=== PATIENT | female | born 1945 | race Caucasian/White ===

== ENCOUNTER → 2018-12-29 10:30 | Outpatient (CLI) | payer MEDICARE, OTHER, SELFPAY ==
--- NOTE | 2018-12-29 | DI.MRI.S_ITS ---
PROCEDURE: MR HIP LT WO CON INDICATIONS: Unilateral primary osteoarthritis, left hip TECHNIQUE: Noncontrast coronal T1 spin echo and STIR through the bony pelvis. Coronal and axial T2 fast spin echo with fat saturation, sagittal T1 spin echo, and oblique axial T2 fast spin echo with fat saturation through the hip. COMPARISON: [facility] [place], CR, XR PELVIS WITH BILATERAL LATERAL HIPS, 11/20/2018, 9:44. FINDINGS: Image quality: Excellent. Bones and joints: Bone marrow of the pelvic ring and proximal femurs show normal signal throughout. No intraosseous lesions or fractures. No avascular necrosis of the femoral heads. Lower lumbar spondylosis. Tendons and ligaments: There is marked thickening of intrasubstance signal change and adjacent soft tissue edema involving the left gluteus minimus and medius insertions. No associated muscle atrophy is identified. Also, on large [id number] pulse sequences, there are similar signal changes involving the insertions of the right hip abductors. The nearby proximal iliotibial band also appears intact. The iliopsoas tendon appears intact, without adjacent bursal fluid collections or evidence for impingement syndrome. The origin of the hamstring tendon is intact at the ischial tuberosity, as well as the associated sacrotuberous ligament. The straight and reflected heads of the rectus femoris muscle origin appear intact, as well as the conjoint tendon. The ligamentum teres appears intact where visualized. Labrum and cartilage: Frayed appearance of the anterosuperior labrum although this could be better evaluated with dedicated MR arthrography. There is mild to moderate degeneration The alpha angle of the femur is within normal limits at less than 55 degrees. Soft tissues: Visualized muscles demonstrate normal bulk and internal signal. Quadratus femoris muscle demonstrates no internal edema to suggest ischiofemoral impingement. The proximal sciatic neurovascular bundle appears normal adjacent to the hamstring tendons. No free pelvic fluid. Bladder wall thickness is normal. Genitourinary structures and bowel loops appear normal where visualized. Incidental colonic diverticulosis. IMPRESSION: Severe left hip abductor insertional tendinopathy/partial rupture, with adjacent soft tissue edema. Of note, similar appearance of the right hip abductors on large nagmc-[id number]-jqsa pulse sequences, although to a slightly lesser extent Mild to moderate left hip joint degeneration. Ill-defined degenerative fraying of the anterosuperior labrum. Dictated by: Fransisco Geller M.D. on 12/31/2018 at 14:09 Approved by: Fransisco Geller M.D. on 12/31/2018 at 14:29
== END ==
PROVIDERS: PCP Family Medicine; Visit Provider Orthopaedic Surgery
DX: M16.12 Unilateral primary osteoarthritis, left hip (principal); S76.012A Strain of muscle, fascia and tendon of left hip, initial encounter; R60.9 Edema, unspecified
CPT/HCPCS: 73721

== ENCOUNTER → 2019-10-25 16:19 | Outpatient (CLI) | payer MEDICARE, OTHER, SELFPAY ==
[2019-10-27 21:36] LABS: COVID19 Sendout Not Detected (Not Detected)
== END ==
PROVIDERS: PCP Family Medicine; Visit Provider Family Medicine
DX: R05 Cough (principal)
CPT/HCPCS: 87635

== ENCOUNTER → 2019-10-25 16:27 | Outpatient (CLI) | payer MEDICARE, OTHER, SELFPAY ==
--- NOTE | 2019-10-25 16:31 | DI.RAD.S_ITS ---
PROCEDURE: XR CHEST 2V INDICATIONS: cough, fever TECHNIQUE: 2 views of the chest were acquired. COMPARISON: None. FINDINGS: Surgical changes and devices: None. Lungs and pleura: Lungs are clear. No pleural effusions or pneumothorax. The lungs are hyperexpanded, with flattening of the hemidiaphragms seen. Mediastinum: The cardiac contours are within normal limits. The aorta demonstrates calcification and tortuosity. Bones and chest wall: No suspicious bony abnormalities. Age-appropriate bony degenerative changes are seen. Accentuated thoracic kyphosis is seen. Soft tissues appear unremarkable. IMPRESSION: No focal infiltrates are seen. Dictated by: Dale Barragan M.D. on 10/25/2019 at 15:54 Approved by: Dale Barragan M.D. on 10/25/2019 at 15:55
== END ==
PROVIDERS: PCP Family Medicine; Referring Provider Family Medicine; Visit Provider Family Medicine
DX: Z20.828 Contact with and (suspected) exposure to other viral communicable diseases (principal); R05 Cough; R50.9 Fever, unspecified
CPT/HCPCS: 71046; 87635

== ENCOUNTER 2025-03-15 19:51 | Emergency (ER) | payer MEDICARE, OTHER, SELFPAY ==
[2025-03-15 20:23] VITALS: BP 139/85; PULSE 69; RESP 15; TEMP 37.3; O2SAT 96; BMI 29.1
--- NOTE | 2025-03-15 20:30 | DI.RAD.S_ITS ---
PROCEDURE: XR WRIST LT MIN 3V INDICATIONS: fall TECHNIQUE: 4 views of the wrist were acquired. COMPARISON: [facility], CR, XR FOREARM LT 2V, 03/15/2025, 20:47. FINDINGS: Bones: No fractures or dislocations. No suspicious bony lesions. Soft tissues: No suspicious soft tissue calcifications. IMPRESSION: No acute fracture. Dictated by: Fam Nichols M.D. on 03/15/2025 at 21:54 Approved by: Fam Nichols M.D. on 03/15/2025 at 21:55
--- NOTE | 2025-03-15 20:30 | DI.RAD.S_ITS ---
PROCEDURE: XR FOREARM LT 2V INDICATIONS: fall TECHNIQUE: 2 views of the forearm were acquired. COMPARISON: [facility], CR, XR WRIST LT MIN 3V, 03/15/2025, 20:47. FINDINGS: Bones: No fractures or dislocations. No suspicious bony lesions. Soft tissues: No suspicious soft tissue calcifications or masses. IMPRESSION: No acute bony abnormality. Dictated by: Fam Nichols M.D. on 03/15/2025 at 21:52 Approved by: Fam Nichols M.D. on 03/15/2025 at 21:54
--- NOTE | 2025-03-15 23:08 | PC.NURSE ---
Pt frustrated and stating we waited in the lobby for 3 hours. What are we waiting for now? Pt informed that the provider is working as fast as he can. reports We should have just went to [place]
--- NOTE | 2025-03-15 23:22 | ED.FALL ---
HPI - Fall General Chief Complaint: Fall Stated Complaint: Lt arm pain + swelling, fell Time Seen by Provider: 03/15/25 22:38 Source: patient Mode of arrival: Ambulatory History of Present Illness HPI Narrative: 79-year-old female had fall 2 days ago with scrape to the inner aspect of her left leg that seems to be improved, able to bear weight. She also has injury to her left wrist and distal forearm, that seems to be persisting, can move her wrist. No other injuries. She also is on oral azithromycin day 3 of 5 day planned course for respiratory illness, having coughing, not using any inhaler. Related Data Home Medications ?Medication ?Instructions ?Recorded ?Confirmed ASPIRIN (Aspirin) 81 mg PO Q DAY ##0 06/12/11 10/25/19 CHOLECALCIFEROL (VITAMIN D3) 400 iu PO ##0 06/12/11 10/25/19 (Vitamin D) alprazolam 0.25 mg tablet 0.25 mg PO PRN ##0 06/12/11 10/25/19 atorvastatin 20 mg tablet (Lipitor) 10 mg PO HS ##0 06/12/11 10/25/19 citalopram 40 mg tablet (Celexa) 40 mg PO Q DAY ##0 06/12/11 10/25/19 clonazepam 0.5 mg tablet (Klonopin) 0.5 mg PO HS ##0 06/12/11 10/25/19 alprazolam 0.5 mg tablet 0.5 mg PO DAILY PRN anxiety 03/15/25 03/15/25 amoxicillin 500 mg capsule 500 mg PO 3XD 03/15/25 03/15/25 atorvastatin 10 mg tablet 10 mg PO DAILY 03/15/25 03/15/25 benzonatate 200 mg capsule 200 mg PO 3XD PRN cough 03/15/25 03/15/25 buspirone 5 mg tablet 5 mg PO BID 03/15/25 03/15/25 clonazepam 1 mg disintegrating 1 mg PO QPM 03/15/25 03/15/25 tablet diltiazem HCl 120 mg 120 mg PO DAILY 03/15/25 03/15/25 capsule,extended release 24 hr lamotrigine 100 mg tablet 100 mg PO DAILY 03/15/25 03/15/25 metoprolol succinate 50 mg 50 mg PO DAILY 03/15/25 03/15/25 tablet,extended release 24 hr prednisone 20 mg tablet 20 mg PO DAILY 03/15/25 03/15/25 prednisone 50 mg tablet 50 mg PO QAM 03/15/25 03/15/25 Allergies Allergy/AdvReac Type Severity Reaction Status Date / Time metoclopramide (From Reglan) Allergy Intermediate Verified 03/15/25 20:20 Patient History Social History Smoking Status: Never smoker Smoking Status: Never smoker Exam Narrative Exam Narrative: GENERAL: Well-developed patient, in mild distress. HEAD: Atraumatic. Normocephalic. EYES: Pupils equal round and reactive. Extraocular motions intact. No scleral icterus. No injection or drainage. ENT: Nose without bleeding, purulent drainage. Throat without erythema, tonsillar hypertrophy or exudate. Airway patent. NECK: Trachea midline. Non tender CARDIOVASCULAR: Regular rate and rhythm without murmurs, gallops, or rubs. RESPIRATORY: Clear to auscultation. Breath sounds equal bilaterally. No wheezes, rales, or rhonchi. GASTROINTESTINAL: Abdomen soft, non-tender, nondistended. EXTREMITIES: No edema or joint tenderness. BACK: Nontender without deformity or crepitance. No flank tenderness. NEURO: AOx3. Motor functions grossly nonfocal. SKIN: No rash or erythema of visible areas Initial Vital Signs Initial Vital Signs: Vital Signs Temperature 99.2 F 03/15/25 20:23 Pulse Rate 69 03/15/25 20:23 Respiratory Rate 15 03/15/25 20:23 Blood Pressure 139/85 03/15/25 20:23 Pulse Oximetry 96 03/15/25 20:23 Oxygen Delivery Method Room Air 03/15/25 20:23 Course Orders Ordered: Discontinued Medications Albuterol (Al[facility]erol Hfa Prepack) [facility] Stop: 03/15/25 23:27 Last Admin: 03/15/25 23:31 Dose: 1 box Documented By: MR Vital Signs Vital signs: Vital Signs - 8 hr 03/15/25 20:23 Temperature 99.2 F Pulse Rate 69 Respiratory Rate 15 Blood Pressure 139/85 Pulse Oximetry 96 Oxygen Delivery Method Room Air MDM - Fall MDM Narrative Medical decision making narrative: 79-year-old female with ground level fall, left wrist pain and swelling. X-ray left wrist without obvious fracture, Velcro wrist splint for support/comfort. Tylenol and or Motrin advised for pain control. Also having coughing while on oral azithromycin day 3 of 5 days course, lungs clear, no wheezes or crackles, no lower extremity edema, no respiratory distress, no fever, no oxygen requirement. We will add bronchodilator support symptomatic treatment albuterol 2 puffs 4 times daily as needed, dispensed in the emergency department, with spacer and teaching by RT. Discharged home with . Return precautions discussed. Discharge Plan Departure Patient Disposition: Home Clinical Impression: Acute upper respiratory infection, Contusion of left wrist, Contusion of left leg Activity Restrictions/Additional Instructions: Recent fall with left leg contusion and small abrasion, able to bear weight. Also subsequent left wrist forearm pain, x-rays of the left wrist forearm without fracture today. Velcro wrist splint support applied in the emergency department to use as needed. Also recent coughing, taking oral azithromycin antibiotic. Still having coughing, no bronchodilator inhaler use. We dispensed albuterol inhaler with use of spacer, 2 puffs 4 times daily as needed, that might help control your cough better. Go ahead and continue the course of your azithromycin full antibiotic course as needed. Recheck with your regular doctor if not improving in the next couple of days. Return to this/nearest emergency department for any change worsening symptoms or any concerns prior. Prescriptions: No Action ASPIRIN (Aspirin) 81 mg PO Q DAY Qty: 0 atorvastatin [Lipitor] 20 MG tablet 10 mg PO HS Qty: 0 citalopram [Celexa] 40 MG tablet 40 mg PO Q DAY Qty: 0 clonazepam [Klonopin] 0.5 MG tablet 0.5 mg PO HS Qty: 0 alprazolam 0.25 MG tablet 0.25 mg PO PRN Qty: 0 CHOLECALCIFEROL (VITAMIN D3) (Vitamin D) 400 iu PO Qty: 0 amoxicillin 500 mg capsule 500 mg PO 3XD buspirone 5 mg tablet 5 mg PO BID atorvastatin 10 mg tablet 10 mg PO DAILY benzonatate 200 mg capsule 200 mg PO 3XD PRN (Reason: cough) alprazolam 0.5 mg tablet 0.5 mg PO DAILY PRN (Reason: anxiety) diltiazem HCl 120 mg capsule,extended release 24hr 120 mg PO DAILY clonazepam 1 mg tablet,disintegrating 1 mg PO QPM lamotrigine 100 mg tablet 100 mg PO DAILY Patient Comments: [NO ORIGINAL SIG] metoprolol succinate 50 mg tablet extended release 24 hr 50 mg PO DAILY prednisone 20 mg tablet 20 mg PO DAILY prednisone 50 mg tablet 50 mg PO QAM Referrals: Kapil Morales DO [Primary Care Provider, Family Practice] Stand Alone Forms: Patient Portal/API
[2025-03-15] MEDS: ALBUTEROL HFA PREPACK 1 BOX MISC (23:31)
[2025-03-15 23:32] VITALS: BP 156/86; PULSE 63; RESP 16; O2SAT 94
== END 2025-03-15 23:46 | disposition home or self-care (01) ==
PROVIDERS: Emergency Provider Emergency Medicine; PCP Family Medicine
DX: S60.212A Contusion of left wrist, initial encounter (principal); S80.12XA Contusion of left lower leg, initial encounter; J06.9 Acute upper respiratory infection, unspecified; W18.30XA Fall on same level, unspecified, initial encounter
CPT/HCPCS: 73090; 73110; 99283